=== PATIENT | male | born 1990 | race Hispanic/Latino ===

== ENCOUNTER 2018-05-23 19:30 | Outpatient (CLI) | payer OTHER | END 2018-05-23 19:31 | disposition home or self-care (01) | LOC: SLEEPLAB 19:30 | PROVIDERS: ATTEND Family Medicine | DX: G47.33 Obstructive sleep apnea (adult) (pediatric) (principal); R53.83 Other fatigue; R51 Headache; E66.9 Obesity, unspecified; R06.83 Snoring; E11.9 Type 2 diabetes mellitus without complications; I10 Essential (primary) hypertension; Z68.41 Body mass index [BMI] 40.0-44.9, adult | CPT/HCPCS: 95811 ==